=== PATIENT | female | born 1975 | race Caucasian/White ===

== ENCOUNTER 2016-10-11 18:03 | Emergency (ER) | payer SELFPAY ==
[2016-10-11 18:03] VITALS: BMI 23.4
[2016-10-11 18:16] VITALS: TEMP 99.4
[2016-10-11 18:52] LABS: RBC URINE 23 /hpf (0-3); URINE BACTERIA RARE (<OCC); URINE BILIRUBIN NEGATIVE (NEGATIVE); URINE BLOOD 2+ (NEGATIVE); URINE COLOR Straw (YELLOW); URINE GLUCOSE (UA) NORMAL (Normal); URINE KETONE NEGATIVE (NEGATIVE); URINE LEUKOCYTE ESTERASE NEG Leu/uL (Negative); URINE PROTEIN NEGATIVE (NEGATIVE); URINE UROBILINOGEN NORMAL mg/dL (0.2-1.0); WBC URINE 3 /hpf (0-5)
[2016-10-11] MEDS ORDERED: Lactated Ringer's 1,000 ML IV STA (19:24)
--- NOTE | 2016-10-11 19:31 | C.PDOC ---
History Of Present Illness Patient is a 41 year old female who presents to the ER with a complaint of nausea, headache, vomiting and lower abdominal pain. Patient is 2 months and has not had any care. Patient is P: 4. Patient states she took tylenol with no relief. Denies any vaginal bleeding, vaginal discharge, fever or chills. Time Seen by Provider: 10/11/16 19:16 Chief Complaint (Nursing): Abdominal Pain History Per: Patient History/Exam Limitations: no limitations Onset/Duration Of Symptoms: Hrs Current Symptoms Are (Timing): Still Present Location Of Pain/Discomfort: Suprapubic Associated Symptoms: Nausea, Vomiting, Other (Headache). denies: Fever, Chills Past Medical History Reviewed: Historical Data, Nursing Documentation, Vital Signs Vital Signs: Last Vital Signs Temp 99.4 F 10/11/16 18:11 Pulse 70 10/11/16 20:44 Resp 20 10/11/16 20:44 BP 109/50 L 10/11/16 20:44 Pulse Ox 98 10/11/16 21:24 Family History: States: Unknown Family Hx - Social History Hx Alcohol Use: No Hx Substance Use: No Review Of Systems Except As Marked, All Systems Reviewed And Found Negative. Constitutional: Negative for: Fever, Chills Cardiovascular: Negative for: Chest Pain, Palpitations Respiratory: Negative for: Shortness of Breath Gastrointestinal: Positive for: Nausea, Vomiting, Abdominal Pain (Lower) Genitourinary: Negative for: Dysuria, Frequency, Vaginal Discharge, Vaginal Bleeding Neurological: Positive for: Headache Physical Exam - Physical Exam Appears: Well, Non-toxic Skin: Normal Color, Warm, Dry Head: Atraumatic, Normacephalic Oral Mucosa: Moist Chest: Symmetrical Cardiovascular: Rhythm Regular Respiratory: Normal Breath Sounds, No Rales, No Rhonchi, No Wheezing Gastrointestinal/Abdominal: Soft, Tenderness (Mild suprapubic ), No Distention, No Guarding, No Rebound Neurological/Psych: Oriented x3, Normal Speech, Normal Cognition ED Course And Treatment - Laboratory Results Result Diagrams: 10/11/16 19:39 10/11/16 19:39 Lab Interpretation: No Acute Changes Interpretation Of Abnormal: HCG 93451,00 O2 Sat by Pulse Oximetry: 98 (Room air) Pulse Ox Interpretation: Normal - CT Scan/US US trans abd Other Rad Studies (CT/US): Read By Radiologist, Radiology Report Reviewed CT/US Interpretation: IMPRESSION: 12 week 1 day single living intrauterine gestation, estimated date of delivery 04/24/17 Progress Note: Blood work, HCG quantitative test, and OB transvaginal US ordered. Reglan PO and lactacted ringers IV administered. Reevaluation Time: 20:52 Reassessment Condition: Improved Disposition - Disposition Disposition: HOME/ ROUTINE Disposition Time: 21:30 Condition: STABLE - Clinical Impression Clinical Impression: , Nausea, Vomiting - Scribe Statement The provider has reviewed the documentation as recorded by the Scribe Provider Attestation: Bro Morales All medical record entries made by the Scribe were at my direction and personally dictated by me. I have reviewed the chart and agree that the record accurately reflects my personal performance of the history, physical exam, medical decision making, and the department course for this patient. I have also personally directed, reviewed, and agree with the discharge instructions and disposition.
[2016-10-11 19:52] LABS: BASO % 0.4 % (0.0-2.0); EOS # 0.1 K/uL (0.0-0.7); EOS % 2.3 % (0.0-4.0); HEMATOCRIT 35.1 % (34.0-47.0); LYMPH # 1.5 K/uL (1.0-4.3); LYMPH % 26.7 % (20.0-40.0); MEAN CELL VOLUME 96.5 fL (81.0-99.0); MEAN CORPUSCULAR HGB CONC 34.2 g/dL (33.0-37.0); MEAN PLATELET VOLUME 9.2 fL (7.2-11.7); MONO # 0.7 K/uL (0.0-0.8); MONO % 12.9 % (0.0-10.0); RED CELL DISTRIBUTION WIDTH 12.7 % (11.5-14.5); WHITE BLOOD COUNT 5.4 K/uL (4.8-10.8)
[2016-10-11 19:58] LABS: CHLORIDE 97 mmol/L (98-107); POTASSIUM 3.8 mmol/L (3.6-5.2); SODIUM 133 mmol/L (132-148)
[2016-10-11 20:00] LABS: GFR AFRICAN-AMERICAN > 60
[2016-10-11 20:01] LABS: ALB/GLOB RATIO 1.2 (1.0-2.1); ALKALINE PHOSPHATASE 38 U/L (38-126); AST/SGOT 24 U/L (14-36); BILIRUBIN,TOTAL < 0.1 mg/dL (0.2-1.3); BLOOD UREA NITROGEN 8 mg/dL (7-17); CALCIUM 8.6 mg/dl (8.6-10.4); CARBON DIOXIDE 23 mmol/L (22-30); GLUCOSE,RANDOM 82 mg/dL (65-105); TOTAL PROTEIN 6.9 g/dL (6.3-8.3)
[2016-10-11 20:02] LABS: ALT/SGPT 18 U/L (9-52)
[2016-10-11 20:46] VITALS: BP 109/50; PULSE 70; RESP 20
[2016-10-11 20:53] VITALS: O2SAT 98
--- NOTE | 2016-10-11 21:20 | US ---
EXAM: US First Trimester, Transabdominal CLINICAL HISTORY: 41 years old, female; Signs and symptoms; Lmp or gestational age (in weeks): [id number]; Other: Vomiting; ; Additional info: with abd pain TECHNIQUE: Real-time transabdominal obstetrical ultrasound of the maternal pelvis and a first trimester with image documentation. EXAM DATE/TIME: 10/11/2016 7:25 PM COMPARISON: There are no prior studies for comparison. FINDINGS: Uterus: Uterus measures approximately 14.5 x 7.6 x 10.7 cm. Cervix measures approximately 3.2 cm in length. Gestation: There is a single living intrauterine gestation. There is a heart rate of 144 beats per minute.Coats rump length measures approximately 55.7 mm. Adnexa: Neither ovary could be identified. IMPRESSION: 12 week 1 day single living intrauterine gestation, estimated date of delivery 04/24/17
== END 2016-10-11 22:20 | disposition home or self-care (01) ==
LOC: C.ER 18:03
DX: O21.8 Other vomiting complicating pregnancy (principal); Z3A.12 12 weeks gestation of pregnancy
CPT/HCPCS: 76801; 80053; 81001; 84702; 84703; 85025; 96374; 99285; J2765; J7120

== ENCOUNTER 2017-03-04 14:17 | Emergency (ER) | payer MEDICAID, OTHER ==
[2017-03-04 14:17] VITALS: BMI 23.4
[2017-03-04] MEDS ORDERED: Sodium Chloride 0.9% 1,000 ML IV ONE (14:39)
[2017-03-04] MEDS ORDERED: Sodium Chloride 0.9% 1,000 ML ONE (14:59)
--- NOTE | 2017-03-04 15:08 | C.PDOC ---
History Of Present Illness Patient is a 42 year old female, 31 weeks , presents to ED for evaluation of headache. Patient states that she rests in her bed for most of the time, walking only very short distances. States she felt dizzy today and tripped over her commade and fell, landing on her knees, and hitting her forehead. Denies any LOC. Pt reports good movement. States that she has pressure sensation in her pelvic when sitting down. Notes having hip and pelvic pain intermittently throughout her . Denies any fluid leakage, vaginal discharge, vaginal bleeding, or any other associated symptoms at this time. Time Seen by Provider: 03/04/17 14:32 Chief Complaint (Nursing): Headache History Per: Patient History/Exam Limitations: no limitations Onset/Duration Of Symptoms: Days Current Symptoms Are (Timing): Still Present Quality: "Pain" Preceeding Symptoms: denies: Visual Disturbances, Known Migraine Symptoms Associated Symptoms: denies: Photophobia, Blurred Vision, Nausea, Vomiting, Extremity Weakness Recent travel outside of the [place]: No Additional History Per: Patient Past Medical History Reviewed: Historical Data, Nursing Documentation, Vital Signs Vital Signs: Last Vital Signs Temp 98.6 F 03/04/17 14:26 Pulse 78 03/04/17 14:26 Resp 20 03/04/17 14:26 BP 129/72 03/04/17 14:26 Pulse Ox 99 03/04/17 15:19 - Medical History PMH: Denies: Asthma, Diabetes Family History: States: Unknown Family Hx - Social History Hx Alcohol Use: No Hx Substance Use: No - Immunization History Hx Tetanus Toxoid Vaccination: Yes Hx Influenza Vaccination: Yes Hx Pneumococcal Vaccination: Yes Review Of Systems Except As Marked, All Systems Reviewed And Found Negative. Constitutional: Negative for: Fever, Chills Gastrointestinal: Negative for: Nausea, Vomiting, Abdominal Pain, Diarrhea Genitourinary: Positive for: Pelvic Pain. Negative for: Dysuria, Frequency, Hematuria, Vaginal Discharge, Vaginal Bleeding Musculoskeletal: Positive for: Other (hip pain) Skin: Negative for: Rash, Bruising Neurological: Positive for: Headache, Dizziness. Negative for: Weakness, Numbness Physical Exam - Physical Exam Appears: Non-toxic, No Acute Distress Skin: Normal Color, Warm, Dry Head: Atraumatic, Normacephalic Eye(s): bilateral: Other (Right eye: irregular pupil s/p cataract surgery. Left eye: gardner lens consistent with cataract) Oral Mucosa: Moist Neck: Normal ROM, Supple Cardiovascular: Rhythm Regular, No Murmur Respiratory: Normal Breath Sounds, No Rales, No Rhonchi, No Wheezing Gastrointestinal/Abdominal: Soft, No Tenderness, No Guarding, No Rebound, Other (gravid abdomen) Extremity: Bilateral: Atraumatic, Normal ROM Pulses: Left Radial: Normal, Right Radial: Normal Neurological/Psych: Oriented x3, Normal Speech, Normal Cognition, Other ( Neurologically intact, no focal deficits) ED Course And Treatment - Laboratory Results Result Diagrams: 03/04/17 15:11 03/04/17 15:11 Lab Interpretation: Normal O2 Sat by Pulse Oximetry: 99 (RA) Pulse Ox Interpretation: Normal Progress Note: Plan: blood work, UA. Pt was given IV fluids, and PO Tylenol. On re-evaluation, pt is resting comfortably, no acute distress. Reevaluation Time: 16:48 Reassessment Condition: Improved (feels better after IV fluids and Tylenol. Patient to be sent to OB for evaluation.) Disposition Counseled Patient/Family Regarding: Studies Performed, Diagnosis, Need For Followup - Disposition Disposition: HOME/ ROUTINE Disposition Time: 16:49 Condition: IMPROVED Instructions: Head Injury (ED) Forms: [email or web address] ([place]) - Clinical Impression Clinical Impression: , Head injury - Scribe Statement The provider has reviewed the documentation as recorded by the Scribe Marilu Guadarrama All medical record entries made by the Scribe were at my direction and personally dictated by me. I have reviewed the chart and agree that the record accurately reflects my personal performance of the history, physical exam, medical decision making, and the department course for this patient. I have also personally directed, reviewed, and agree with the discharge instructions and disposition.
[2017-03-04 15:15] LABS: BASO % 0.4 % (0.0-2.0); EOS # 0.2 K/uL (0.0-0.7); EOS % 1.9 % (0.0-4.0); HEMATOCRIT 32.9 % (34.0-47.0); LYMPH # 1.7 K/uL (1.0-4.3); LYMPH % 16.4 % (20.0-40.0); MEAN CELL VOLUME 96.2 fL (81.0-99.0); MEAN CORPUSCULAR HEMOGLOBIN 33.1 pg (27.0-31.0); MEAN CORPUSCULAR HGB CONC 34.4 g/dL (33.0-37.0); MEAN PLATELET VOLUME 9.4 fL (7.2-11.7); MONO # 0.8 K/uL (0.0-0.8); MONO % 7.7 % (0.0-10.0); RED CELL DISTRIBUTION WIDTH 12.8 % (11.5-14.5); WHITE BLOOD COUNT 10.5 K/uL (4.8-10.8)
[2017-03-04 15:34] LABS: CHLORIDE 105 mmol/L (98-107); SODIUM 135 mmol/L (132-148)
[2017-03-04 15:35] LABS: POTASSIUM 4.3 mmol/L (3.6-5.2)
[2017-03-04 15:37] LABS: ALB/GLOB RATIO 0.9 (1.0-2.1); ALT/SGPT 19 U/L (9-52); AST/SGOT 18 U/L (14-36); BILIRUBIN,TOTAL 0.6 mg/dL (0.2-1.3); BLOOD UREA NITROGEN 13 mg/dL (7-17); CALCIUM 8.3 mg/dl (8.6-10.4); CARBON DIOXIDE 16 mmol/L (22-30); GFR AFRICAN-AMERICAN > 60; GLUCOSE,RANDOM 65 mg/dL (65-105); TOTAL PROTEIN 6.7 g/dL (6.3-8.3)
[2017-03-04 15:51] LABS: ALKALINE PHOSPHATASE 134 U/L (38-126)
[2017-03-04 16:33] LABS: RBC URINE 3 /hpf (0-3); TRANSITIONAL EPITHIAL < 1 /hpf (0-3); URINE BACTERIA RARE (<OCC); URINE BILIRUBIN NEGATIVE (NEGATIVE); URINE BLOOD 1+ (NEGATIVE); URINE COLOR Straw (YELLOW); URINE GLUCOSE (UA) NORMAL (Normal); URINE KETONE NEGATIVE (NEGATIVE); URINE LEUKOCYTE ESTERASE NEG Leu/uL (Negative); URINE PROTEIN NEGATIVE (NEGATIVE); URINE UROBILINOGEN NORMAL mg/dL (0.2-1.0); WBC URINE 1 /hpf (0-5)
[2017-03-04 16:54] VITALS: RESP 18
[2017-03-04 18:59] LABS: BASO # 0.1 K/uL (0.0-0.2); BASO % 0.6 % (0.0-2.0); EOS # 0.2 K/uL (0.0-0.7); EOS % 1.9 % (0.0-4.0); HEMATOCRIT 32.7 % (34.0-47.0); LYMPH # 2.3 K/uL (1.0-4.3); LYMPH % 21.3 % (20.0-40.0); MEAN CELL VOLUME 96.8 fL (81.0-99.0); MEAN CORPUSCULAR HGB CONC 34.1 g/dL (33.0-37.0); MEAN PLATELET VOLUME 9.7 fL (7.2-11.7); MONO # 0.7 K/uL (0.0-0.8); MONO % 6.7 % (0.0-10.0); RED CELL DISTRIBUTION WIDTH 13.1 % (11.5-14.5); WHITE BLOOD COUNT 10.7 K/uL (4.8-10.8)
[2017-03-04] MEDS ORDERED: ceFAZolin IV 2 gm in Dextrose 2 GM/100 ML BAG IVPB ONE (19:00)
[2017-03-04 19:06] LABS: RBC URINE 2 /hpf (0-3); URINE BACTERIA RARE (<OCC); URINE BILIRUBIN NEGATIVE (NEGATIVE); URINE BLOOD 1+ (NEGATIVE); URINE COLOR Straw (YELLOW); URINE GLUCOSE (UA) NORMAL (Normal); URINE KETONE TRACE mg/dL (NEGATIVE); URINE LEUKOCYTE ESTERASE NEG Leu/uL (Negative); URINE PROTEIN NEGATIVE (NEGATIVE); URINE UROBILINOGEN NORMAL mg/dL (0.2-1.0); WBC URINE < 1 /hpf (0-5)
[2017-03-04 19:11] LABS: INR 0.9
[2017-03-04] MEDS ORDERED: ceFAZolin IV 2 gm in Dextrose 1 GM/50 ML BAG IVPB ONE (19:15)
--- NOTE | 2017-03-04 19:41 | OBHP ---
Datetime: 03/04/2017 18:19 IP Adm Impression: , intrauterine Admit Comment, IP Provider: 42 y/o @ 32.5 wks GA reports she was using a bedside commode and tripped with hitting her head on crib landing on hip. pt denies any direct abodminal trauma. pt dnei es any ctx, lof, vb, and reports neormla movements. Pt staets fall occurred at 13:30 todya and went to er nd was cleared. Pt states she uses a commode becuase she goes to the bathroom many times a nd and has incomplete emptying. pt reports pelvic pressure , denies dysuria, reports urgency . Pt rep orts feelign ocnstiaptoed. pt denie any blood in urine. pt denies any fever, chills, nausea, vomitig, CP, SOB, flank pain, difficluty walking. 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 PMH: denies PSH: denies MEDS: pnv NKDA SHX ;negative etoh/tobacc/drugs A/P 42 y/o @ 32.5 wks GA s/p fall for prolonged monitoring with UTI -labs: cbc, pt/inr, type and screen -cont toco and efm -ancef -UA, urine Cx -ivh -US r/o placental abruption -reexamine Pelvic Type - PN: Adequate Extremities - PN: Normal Abdomen - PN: Normal Back - PN: Normal Breast - PN: Not Done Lungs - PN: Normal Heart - PN: Normal Thyroid - PN: Not Done Neurologic - PN: Normal HEENT - PN: Normal General - PN: Normal Presentation-Admit: Vertex FHR - Baseline A Provider: 135 Membranes, Provider: Intact Contraction Comments Provider: none Comments, ACOG Physical Exam: No ecchomosis, no rashes, no paplable ctx Flank: no cva b/l Gestation - Est Wks by US: 32.5 EGA AdmitDate IP: 32.5 Vital Signs Provider: Reviewed; Within Normal Limits IP Chief Complaint: Trauma/Fall NICHD Variability Prov Fetus A: Moderate 6-25bpm NICHD Accel Fetus A IP Provider: 15X15 FHR Category Provider Fetus A: Category I NICHD Decel Fetus A IP Provider: None Dilatation, Provider: 1 Effacement, Provider: 30 Station, Provider: -3 Genitourinary Exam: Normal DTRs - PN: Normal
--- NOTE | 2017-03-04 20:01 | OBDCSUM ---
Datetime: 03/04/2017 19:58 Discharged to, Provider: Home Follow up at, Provider: Clinic Disch Instr Activity: Normal activity Disch Instr Diet: Regular Discharge Instructions, Provider: Routine instructions given Discharge Time: 03/04/2017 19:58 Follow up in weeks, Provider: Mar 07 Disch Referrals: None Discharge Comment, Provider: pretemr labor precautisn given kick counts if pain, bleeding, lof, vb, decrased or no fm go to neare ER and call clinic Discharge Diagnosis Prov Other: s/p fall with head trauma
--- NOTE | 2017-03-04 21:23 | US ---
EXAM: US After First Trimester, Transabdominal CLINICAL HISTORY: 42 years old, female; Injury or trauma; Fall; Injury indication: Pt fell in bathroom; ; Additional info: 32 weeks S/P fall TECHNIQUE: Real-time transabdominal obstetrical ultrasound of the maternal pelvis and a second or third trimester with image documentation. COMPARISON: No relevant prior studies available. FINDINGS: Evaluation of the pelvis reveals a single intrauterine with a vertex presentation. The placenta is left lateral. The cervix measures 3.2 cm in length and is closed. There is a normal quantity of amniotic fluid, VICENTA 14.8. measurements correspond to an estimated gestational age of 32 weeks 0 days. Estimated weight is 1871 +/- 281 g (4 lb 2 oz +/- 10). EFW percentile is 19 %. Limited evaluation of anatomy. cardiac activity is identified with a heart rate of 152 beats per minute. Biophysical profile score 8/8. IMPRESSION: Limited study. Single live IUP as above. Biophysical profile score 8/8. Correlate with complete sonographic imaging.
[2017-03-05 01:57] VITALS: BP 110/63; PULSE 82; TEMP 97.9; O2SAT 99
== END 2017-03-04 19:55 | disposition home or self-care (01) ==
LOC: C.EROB 14:17 → C.ER 14:17 → C.EROB 19:55
DX: S09.90XA Unspecified injury of head, initial encounter (principal); W01.0XXA Fall on same level from slipping, tripping and stumbling without subsequent striking against object, initial encounter; O26.893 Other specified pregnancy related conditions, third trimester; Z3A.32 32 weeks gestation of pregnancy
CPT/HCPCS: 76815; 76818; 80053; 81001; 85025; 85384; 85610; 85730; 86850; 86900; 96360; 99285; J0690; J7040

== ENCOUNTER 2017-04-03 20:38 | Emergency (ER) | payer MEDICAID, OTHER ==
--- NOTE | 2017-04-03 20:52 | OBHP ---
Datetime: 04/03/2017 20:47 IP Adm Impression: Term, intrauterine ; No Active Labor IP Admit Plan: Discharge home Admit Comment, IP Provider: Chief complaint-contractions HPI 42 y/o at 37 wga with c/o crampig since this evening.patient reports having intercourse e arlier in the day denies vaginal bleeding or loss of fluid course AMA PMH denies PSH denies obgyn hx ; nvdx4; last delivery 2001 Social hx denies tobacco,alcohol or illicit drug use Exam see exam section A/P 42 y/o at 37 wga with c/o cramping.Exam /cervix unchanged since last exam -patient dischargd homne -folow up in am in clinic -active labor rpecautions given Pelvic Type - PN: Adequate Extremities - PN: Normal Abdomen - PN: Normal Lungs - PN: Normal Heart - PN: Normal Neurologic - PN: Normal General - PN: Normal Contraction Comments Provider: occ Gestation - Est Wks by US: 37.0 IP Hx Assessment: The History has been Reviewed and is Current EGA AdmitDate IP: 37.0 Vital Signs Provider: Reviewed; Within Normal Limits IP Chief Complaint: Uterine contractions FHR Category Provider Fetus A: Category I Dilatation, Provider: 1 Effacement, Provider: 50 Station, Provider: -2 DTRs - PN: Normal
[2017-04-04 01:47] VITALS: BP 106/64; PULSE 81
== END 2017-04-03 21:35 | disposition home or self-care (01) ==
LOC: C.EROB 20:38
DX: O60.03 Preterm labor without delivery, third trimester (principal); Z3A.37 37 weeks gestation of pregnancy

== ENCOUNTER 2017-04-18 15:55 | Emergency (ER) | payer MEDICAID, OTHER ==
[2017-04-18 22:08] VITALS: BP 120/68; PULSE 79
== END 2017-04-18 16:57 | disposition home or self-care (01) ==
LOC: C.EROB 15:55
DX: O26.893 Other specified pregnancy related conditions, third trimester (principal); R10.30 Lower abdominal pain, unspecified; Z3A.39 39 weeks gestation of pregnancy

== ENCOUNTER 2017-04-24 06:33 | Emergency (ER) | payer MEDICAID, OTHER ==
--- NOTE | 2017-04-24 06:54 | OBHP ---
Datetime: 04/24/2017 06:49 IP Adm Impression: No Active Labor IP Admit Plan: Discharge home Admit Comment, IP Provider: Chief complaint-contractions HPI 42 y/o t 40 wga with c/po ctx since 5 pm.patient denies vaginal bleeding or loss off xin d course AMA; OBGYN: [facility] in [place] [employer] History: Menarch: 15 year old; Regular menstrual periods which last about 5 days; LMP: 2016. TANVIR 04/24/17 by ultrasound done on 03/19. Normal papsmear; Denies STI; Sexually active about 1 week ago. All 4 vaginal deliveries were term with no complications delivered in [facility] ublic: 1994: boy 8lbs; 1997: girl 8lbs; 1999: girl 8lbs; 2002: girl 8lbs Medical History: Denies Surgical History: eye surgery 2013 Family History: Mom- alive; Dad passed of a stroke but patient does not know how old he was Medications: Allergies: NKDA Social History: 4 children live in [place], lives at home with partner, they have been together for 3 years but are not legally , patient works packing [employer], patient denies sm oking, denies alcohol, denies illicit drug use. O-VSS stable Abdomen: non-tender, soft, fundus firm, + heart rate Lower Extremities: non-tender; non-swollen A/P: 42 year old female at 40 wga with c'o ctx.no active labor -patient discharged home -follow up in clinic in afternoon for recheck Pelvic Type - PN: Adequate Extremities - PN: Normal Abdomen - PN: Normal Lungs - PN: Normal Heart - PN: Normal Neurologic - PN: Normal General - PN: Normal Gestation - Est Wks by US: 40.0 IP Hx Assessment: The History has been Reviewed and is Current EGA AdmitDate IP: 40.0 Vital Signs Provider: Reviewed IP Chief Complaint: Uterine contractions FHR Category Provider Fetus A: Category I Dilatation, Provider: 1 Effacement, Provider: 50 Station, Provider: -3 DTRs - PN: Normal Datetime: 04/18/2017 16:44 Back - PN: Normal Breast - PN: Normal Thyroid - PN: Normal HEENT - PN: Normal FHR - Baseline A Provider: 130 Membranes, Provider: Intact Contraction Comments Provider: none NICHD Variability Prov Fetus A: Moderate 6-25bpm NICHD Accel Fetus A IP Provider: 15X15 NICHD Decel Fetus A IP Provider: None Genitourinary Exam: Normal
== END 2017-04-24 08:05 | disposition home or self-care (01) ==
LOC: C.EROB 06:33
DX: O47.1 False labor at or after 37 completed weeks of gestation (principal); Z3A.40 40 weeks gestation of pregnancy

== ENCOUNTER 2017-04-25 16:32 | Inpatient (IN) | payer MEDICAID ==
[2017-04-25 17:08] VITALS: BMI 29.9
--- NOTE | 2017-04-25 17:14 | OBADHP ---
Datetime: 04/25/2017 17:05 Admit Comment, IP Provider: at 40.1weeks came marlon c/o lof on/off from 2 hrs. pt went to clinic and was told she is ruptered and go for admission. no ctxs, vb,+fm. obhx 4 x pmh den med pnv all nkda psh den soch de sse neg pooling, neg nitrazine a/p at 40.1weeks r/o rom. admit for induction for post term and AMA npo/ivf labs pain manage cot issa and efm cervidil type and cross x 2 anticipate Pelvic Type - PN: Adequate Extremities - PN: Normal Abdomen - PN: Normal Back - PN: Normal Breast - PN: Normal Lungs - PN: Normal Heart - PN: Normal Thyroid - PN: Normal Neurologic - PN: Normal HEENT - PN: Normal General - PN: Normal FHR - Baseline A Provider: 130 Membranes, Provider: Intact Contraction Comments Provider: occ Comments, ACOG Physical Exam: gravid,non tender ext no edema,no calf ten sse neg nitrazine,nehg pooling Pool Provider: Negative Nitrazine Provider: Negative IP Hx Assessment: The History has been Reviewed and is Current Vital Signs Provider: Reviewed; Within Normal Limits IP Chief Complaint: Uterine contractions; Suspected ruptured membranes NICHD Variability Prov Fetus A: Moderate 6-25bpm NICHD Accel Fetus A IP Provider: 15X15 FHR Category Provider Fetus A: Category I Dilatation, Provider: 0 Effacement, Provider: 30 Station, Provider: -3 Genitourinary Exam: Normal DTRs - PN: Normal EGA AdmitDate IP: 40.1 IP Adm Impression: Postterm, intrauterine IP Admit Plan: Admit to unit; Initiate labor induction protocol Datetime: 04/24/2017 06:49 Gestation - Est Wks by US: 40.0 Datetime: 04/18/2017 16:44 NICHD Decel Fetus A IP Provider: None Datetime: 03/04/2017 18:19 Presentation-Admit: Vertex
[2017-04-25] MEDS ORDERED: Nalbuphine 20 mg/ml Inj (1 ml) IVP PRN (17:15)
[2017-04-25] MEDS ORDERED: Lactated Ringer's 1,000 ML IV SCH (17:15)
[2017-04-25 17:38] LABS: BASO % 0.4 % (0.0-2.0); EOS # 0.2 K/uL (0.0-0.7); EOS % 2.6 % (0.0-4.0); LYMPH % 24.3 % (20.0-40.0); MEAN CORPUSCULAR HEMOGLOBIN 32.2 pg (27.0-31.0); MEAN PLATELET VOLUME 10.3 fL (7.2-11.7); MONO # 0.6 K/uL (0.0-0.8); MONO % 7.1 % (0.0-10.0); RED CELL DISTRIBUTION WIDTH 13.7 % (11.5-14.5); WHITE BLOOD COUNT 8.2 K/uL (4.8-10.8)
[2017-04-25 17:41] LABS: MEAN CELL VOLUME 94.7 fL (81.0-99.0)
[2017-04-25 17:45] LABS: CHLORIDE 102 mmol/L (98-107); SODIUM 131 mmol/L (132-148)
[2017-04-25 17:46] LABS: POTASSIUM 3.8 mmol/L (3.6-5.2)
[2017-04-25 17:48] LABS: ALKALINE PHOSPHATASE 248 U/L (38-126); ALT/SGPT 22 U/L (9-52); AST/SGOT 18 U/L (14-36); BILIRUBIN,TOTAL 0.4 mg/dL (0.2-1.3); BLOOD UREA NITROGEN 10 mg/dL (7-17); CARBON DIOXIDE 17 mmol/L (22-30); GFR AFRICAN-AMERICAN > 60; TOTAL PROTEIN 7.1 g/dL (6.3-8.3)
[2017-04-25 17:49] LABS: CALCIUM 8.8 mg/dl (8.6-10.4); GLUCOSE,RANDOM 99 mg/dL (65-105)
[2017-04-25 17:52] LABS: URINE BILIRUBIN NEGATIVE (NEGATIVE); URINE BLOOD 2+ (NEGATIVE); URINE COLOR Yellow (YELLOW); URINE GLUCOSE (UA) NORMAL (Normal); URINE KETONE NEGATIVE (NEGATIVE); URINE LEUKOCYTE ESTERASE TRACE Leu/uL (Negative); URINE PROTEIN NEGATIVE (NEGATIVE); URINE UROBILINOGEN NORMAL mg/dL (0.2-1.0); WBC URINE 3 /hpf (0-5)
[2017-04-25 17:55] LABS: RBC URINE 4 /hpf (0-3)
--- NOTE | 2017-04-25 19:28 | OBPN ---
Datetime: 04/25/2017 19:26 IP Procedures: Sterile Vag Exam IP Progress Plan: Cervical Ripening FHR - Baseline A Provider: 130 IP Progress Note Comment: pt was examined at bed side ve closed/30/-3 cervidil placed r/a/b discussed pain management anticipate Vital Signs Provider: Reviewed; Within Normal Limits NICHD Accel Fetus A IP Provider: 15X15 FHR Category Provider Fetus A: Category I NICHD Variability Prov Fetus A: Moderate 6-25bpm Dilatation, Provider: 0 Effacement, Provider: 30 Station, Provider: -3 Datetime: 04/25/2017 17:05 Pool Provider: Negative Nitrazine Provider: Negative Membranes, Provider: Intact Contraction Comments Provider: occ Datetime: 04/24/2017 06:49 IP Progress Impression Other: false labor Gestation - Est Wks by US: 40.0 Datetime: 04/18/2017 16:44 NICHD Decel Fetus A IP Provider: None Datetime: 03/04/2017 18:19 Presentation-Admit: Vertex
[2017-04-25] MEDS ORDERED: Nalbuphine 20 mg/ml Inj (1 ml) ONE (23:51)
[2017-04-26] MEDS ORDERED: Nalbuphine 20 mg/ml Inj (1 ml) IVP PRN (04:05)
[2017-04-26] MEDS ORDERED: Oxycodone/Acetaminophen 5/325 mg Tab PO PRN ×2 (08:03)
[2017-04-26] MEDS ORDERED: Oxycodone/Acetaminophen 5/325 mg Tab ONE (08:34)
--- NOTE | 2017-04-26 08:41 | OBDS ---
DELIVERY PERSONNEL Delivery Doctor: Denny Tamayo MD Field Inspector: Linda Moulton RN MATERNAL INFORMATION Delivery Anesthesia: None Placenta Cultured: No Maternal Complications: None Provider Comments: Uncomplicated vaginal delivery of live female over intact perineun; VANGIE po sition, weight 7lb 6oz, 's 9/9. placed on mother's abdomen; umbilical cord doubly clampe d and cut. Cord blood samples obtained Spontaneous delivery of placenta - grossly intact; 3 vessel cord. Uterus explored under sterile conditions - contracted and firm Inspection of cervix, vagina, perineum - 1st degree left periurethral laceration noted - not activ pilar bleeding. Bladder catherization performed by me under sterile conditions: approximately 100 mL concentrated urine retrieved. Bimanual massage performed; uterus remains firm Mother and infant bonding; initiated. Both in stable condition. LABOR SUMMARY EDC: 04/24/2017 00:00 No. Babies in Womb: 1 Attempted: No Labor Anesthesia: None LABOR INFORMATION Reason for Induction: Not Applicable Cervical Ripening Agents: Cervidil Oxytocin: N/A Group B Beta Strep: Negative (Annotations: 03/24/2017) Antibiotics # of Doses: 0 Steroids Given: None Reason Steroids Not Administered: Not Applicable MEMBRANES Membranes Rupture Method: Spontaneous Rupture of Membranes: 04/25/2017 07:00 Length of Rupture (hrs): 24.37 Amniotic Fluid Color: Clear Amniotic Fluid Amount: Small STAGES OF LABOR Stage 3 hrs: 0 Stage 3 min: 12 VAGINAL DELIVERY Episiotomy: None Laceration Extension: First Degree Laceration Type: Periurethral Other Laceration: left lateral Laceration Repair: Not Applicable Initial Vag Sponge Count: 10 Final Vag Sponge Count: 10 Initial Vag Sharps Count: 0 Final Vag Sharps Count: 0 Sponge Count Correct: Yes Sharps Count Correct: Yes BABY A INFORMATION Infant Delivery Date/Time: 04/26/2017 07:22 Method of Delivery: Vaginal Born in Route : No : N/A Forceps: N/A Vacuum Extraction: N/A Shoulder Dystocia : No SHOULDER DYSTOCIA BABY A Delivery Date/Time: 04/26/2017 07:22 PRESENTATION/POSITION BABY A Presentation: Cephalic Cephalic Presentation: Vertex Vertex Position: Right Occipital Anterior PLACENTA INFORMATION BABY A Placenta Delivery Time : 04/26/2017 07:34 Placenta Method of Delivery: Spontaneous Placenta Status: Delivered SCORES BABY A Heart Rate 1 min: >100 bpm Resp Effort 1 min: Good Cry Reflex Irritability 1 min: Cough or Sneeze or Pulls Away Muscle Tone 1 min: Active Motion Color 1 min: Body [place], Extremities Blue Resuscitation Effort 1 min: Tactile Stimulation SCORE 1 MIN: 9 Heart Rate 5 min: >100 bpm Resp Effort 5 min: Good Cry Reflex Irritability 5 min: Cough or Sneeze or Pulls Away Muscle Tone 5 min: Active Motion Color 5 min: Body [place], Extremities Blue SCORE 5 MIN: 9 INFORMATION BABY A Gestational Age at Delivery: 40.0 Gestational Status: Term Outcome : Liveborn Infant Condition : Stable Infant Sex: Female IDENTIFICATION/MEDS BABY A ID Band Number: [id number] ID Band Location: Left Leg; Left Arm Sensor Applied: Yes Sensor Number: [id number] Sensor Location : Cord Clamp Vitamin K Given : Not Given Erythromycin Given: Not Given WEIGHT/LENGTH BABY A Infant Birthweight (gms): 3340 Infant Weight (lb): 7 Infant Weight (oz): 6 Length Inches: 19.50 Infant Length cms: 49.5 CORD INFORMATION BABY A No. Cord Vessels: 3 Nuchal Cord : N/A Cord Blood Taken: Yes Infant Suction: Mouth; Nose ASSESSMENT BABY A Complications: None Physical Findings at Delivery: Within Normal Limits Respirations: Appears Normal Marketing Agent/ALS Called : No Care By: Olya Carr RN/Olya Moulton RN Transferred To: Remains with Mother
[2017-04-26] MEDS: Benzocaine/Menthol 20%-0.5% Topical Spray (60 ml) TOP SCH ×2 (11:07→18:24)
[2017-04-26] MEDS: Multiple Vitamins Tab PO SCH (11:07)
[2017-04-27 07:19] LABS: BASO % 0.2 % (0.0-2.0); EOS # 0.2 K/uL (0.0-0.7); EOS % 1.9 % (0.0-4.0); HEMATOCRIT 33.7 % (34.0-47.0); LYMPH # 2.1 K/uL (1.0-4.3); MEAN CELL VOLUME 95.4 fL (81.0-99.0); MEAN CORPUSCULAR HEMOGLOBIN 32.2 pg (27.0-31.0); MEAN CORPUSCULAR HGB CONC 33.7 g/dL (33.0-37.0); MEAN PLATELET VOLUME 9.9 fL (7.2-11.7); MONO # 0.9 K/uL (0.0-0.8); MONO % 7.6 % (0.0-10.0); RED CELL DISTRIBUTION WIDTH 14.2 % (11.5-14.5); WHITE BLOOD COUNT 11.6 K/uL (4.8-10.8)
[2017-04-27] MEDS: Multiple Vitamins Tab PO SCH (09:22)
[2017-04-27] MEDS: Benzocaine/Menthol 20%-0.5% Topical Spray (60 ml) TOP SCH (17:14)
[2017-04-28 00:10] VITALS: TEMP 97.7
--- NOTE | 2017-04-28 06:58 | OBPPN ---
Datetime: 04/27/2017 07:28 PP Pain Prov: Within normal limits PP Nausea Prov: Denies PP Flatus Prov: Yes PP BM Prov: Yes PP Breasts Prov: Normal PP Heart Prov: Normal PP Lungs Prov: Normal PP Abdomen/Uterus Prov: Normal PP Lochia Prov: Normal PP Vulva/Perineum Prov: Normal PP CVA Tenderness Prov: Normal PP Extremities Prov: Normal PP C/S Incision Prov: Not Applicable PP Progress Prov: Normal PP Impression Prov: Normal progression PP Plan Prov: Continue present management PP Progress Note Prov: 42 year old female status post day 1 of spontaneous vaginal delivery. S he states she is feeling well. She denies pain. States she has been walking around in her room. Sh e states she has passed flatus and she has had a bowel movement. Denies dysuria, nausea or vomiting. Patient states she is only breast feeding. Objective: B/P: 108/66 H/H (04/27): 11.4/33.7 H/H on admission (04/25): 11.2/33 Awake, Alert, Oriented x3 Abdomen: Fundus is firm about one finger above the umbilicus, non-tender Lower Extremity: Non-tender, non-swollen A/P: 42 year old female status post day 1 spontaneous vaginal delivery 1.) Continue pain managment 2.) Encourage ambulation 3.) Continue breast feeding Ebony Metz DO PGY-1. Pt seen and examined with Resident and agrees with the above. Vital Signs Provider PP: Reviewed; Within Normal Limits
[2017-04-28] MEDS ORDERED: Influenza Vaccine 60 mcg/0.5 mL SYR (4YR UP) IM ONE (08:07)
[2017-04-28 08:13] VITALS: BP 129/84; PULSE 83; RESP 18; O2SAT 99
--- NOTE | 2017-04-28 08:51 | OBPPN ---
Datetime: 04/28/2017 08:38 PP Pain Prov: Within normal limits PP Nausea Prov: Denies PP Flatus Prov: Yes PP BM Prov: Yes PP Breasts Prov: Normal PP Heart Prov: Normal PP Lungs Prov: Normal PP Abdomen/Uterus Prov: Normal PP Lochia Prov: Normal PP Vulva/Perineum Prov: Normal PP CVA Tenderness Prov: Normal PP Extremities Prov: Normal PP C/S Incision Prov: Not Applicable PP Progress Prov: Normal PP Comments Phys Exam Prov: Abdomen: Soft. non distended. (+) BS. Fundus firm, mobile, non tender at umbilicus. Mild lochia rubra All other systems reviewed and are negative PP Impression Prov: Normal progression PP Plan Prov: Discharge PP Progress Note Prov: Patient received in room 461, dressing for discharge. Patient in good systems; FOB also resent. exclusively. Deneis headaches, dizziness. P.E.: as above. WD in NAD. Awake, laert, oriented to time, person and place. Pleasant and cooperat bhavik - PPD#2 H/H 11.4/33.7; Rh(+) Assessment: PPD#2, 42 y.o. P5, S/P at 40+ weeks. Afebrile, vital signs stable. Interested in OCs for contraception. Clinically stable. Plan: 1) Discharge home 2) see full discharge instructions Vital Signs Provider PP: Reviewed; Within Normal Limits
--- NOTE | 2017-04-28 08:53 | OBDCSUM ---
Datetime: 04/28/2017 08:18 Discharged to, Provider: Home Follow up at, Provider: clinic Disch Instr Activity: Normal activity; May Shower Disch Instr Diet: Regular Discharge Diet restrict Prov: none Discharge Diagnosis, Provider: Term Delivered Discharge Time: 04/28/2017 11:00 Follow up in weeks, Provider: 6 weeks Disch Referrals: None Contraception discussed, Prov: Yes Disch Activity Restrictions: No sexual activity; Nothing in vagina - [place], tampons, douche Discharge Diagnosis Prov Other: Advanced maternal age Grand multiparity Contraception counseling Contraception after Delivery: Control Pill/Patch
[2017-04-28] MEDS: Benzocaine/Menthol 20%-0.5% Topical Spray (60 ml) TOP SCH (09:06)
[2017-04-28] MEDS: Multiple Vitamins Tab PO SCH (09:07)
== END 2017-04-28 11:56 | disposition home or self-care (01) | DRG 373 ==
LOC: C.EROB 16:32 → C.4D 17:02 → C.4M 04-26 10:20
PROVIDERS: ADMIT Obstetrics & Gynecology; ATTEND Obstetrics & Gynecology
PROC: 3E0P7VZ Introduction of Hormone into Female Reproductive, Via Natural or Artificial Opening (ICD-10-PCS; 2017-04-25)
PROC: 10E0XZZ Delivery of Products of Conception, External Approach (ICD-10-PCS; principal; 2017-04-26)
PROC: 0HQ9XZZ Repair Perineum Skin, External Approach (ICD-10-PCS; 2017-04-26)
DX: O48.0 Post-term pregnancy (principal); O70.0 First degree perineal laceration during delivery; Z3A.40 40 weeks gestation of pregnancy; Z37.0 Single live birth